=== PATIENT | male | born 1970 | race African-American/Black ===

== ENCOUNTER 2016-11-22 04:32 | Emergency (ER) | payer MEDICAID ==
[~2016-11-22] VITALS: Ht 175.3 cm; Wt 70.0 kg
[2016-11-22 04:52] VITALS: BP 162/112
[2016-11-22] MEDS ORDERED: LEVETIRACETAM 500MG PREMIX 100 ML IV ONE (05:00)
== END 2016-11-22 07:15 | disposition home or self-care (01) ==
LOC: ER 04:43
DX: G40.909 Epilepsy, unspecified, not intractable, without status epilepticus (principal); I10 Essential (primary) hypertension; F12.10 Cannabis abuse, uncomplicated; F17.200 Nicotine dependence, unspecified, uncomplicated
CPT/HCPCS: 96365; 99284; J1953

== ENCOUNTER 2017-01-04 08:08 | Emergency (ER) | payer MEDICAID ==
[~2017-01-04] VITALS: Ht 175.3 cm; Wt 74.0 kg
[2017-01-04] MEDS ORDERED: IBUPROFEN 600MG TABLET PO ONE (08:45)
[2017-01-04] MEDS ORDERED: LEVETIRACETAM 500MG PREMIX 100 ML IV ONE (08:45)
[2017-01-04 09:15] LABS: HEMATOCRIT. 39.6 % (42.0-52.0); HEMOGLOBIN. 13.6 g/dL (14.0-18.0); MEAN CORPUSCULAR HEMOGLOBIN 33.5 pg (28.0-32.0); MEAN CORPUSCULAR HGB CONC 34.3 g/dL (31.0-37.0); MEAN CORPUSCULAR VOLUME 97.7 fL (80.0-94.0); MEAN PLATELET VOLUME 8.6 fl (7.4-10.4); PLATELET 170 x1000/uL (130-400); RED BLOOD CELL COUNT 4.05 mill/uL (4.7-6.1); RED CELL DISTRIBUTION WIDTH 15.7 % (11.6-14.6); WHITE BLOOD COUNT 9.6 x1000/uL (4.5-11.0)
[2017-01-04 09:17] LABS: DIFFERENTIAL COMMENT 1
[2017-01-04 09:18] LABS: CHLORIDE 98 mEq/L (98-107); INDEX HEMOLYSI 1 (1-3); INDEX ICTERIC 1 (1-4); INDEX LIPEMIC 1 (1-3)
[2017-01-04 09:26] LABS: ALANINE AMINOTRANSFERASE 69 IU/L (13-61); ANION GAP 15; CALCIUM 8.7 mg/dL (8.5-10.1); CARBON DIOXIDE 29 mEq/L (21-32); UREA NITROGEN BLOOD 5 mg/dL (7-21); eGFR > 60 mL/min (>60)
[2017-01-04 09:35] LABS: CARBAMAZEPINE < 0.5 ug/mL (4-12); PHENOBARBITAL < 2.1 ug/mL (15.0-40.0); PHENYTOIN < 0.4 ug/mL (10-20); VALPROIC ACID < 3.0 ug/mL (50-100)
[2017-01-04 10:08] LABS: PLATELET ESTIMATE NORMAL
[2017-01-04 12:05] VITALS: BP 159/101
== END 2017-01-04 12:09 | disposition home or self-care (01) ==
LOC: ER 08:31
DX: R56.9 Unspecified convulsions (principal); I10 Essential (primary) hypertension; R51 Headache
CPT/HCPCS: 36415; 80053; 80156; 80165; 80184; 80185; 85025; 96365; 99284; J1953

== ENCOUNTER 2017-01-23 08:46 | Emergency (ER) | payer MEDICAID ==
[~2017-01-23] VITALS: Ht 172.7 cm; Wt 75.0 kg
[2017-01-23] MEDS ORDERED: LORAZEPAM 2MG/ML CPJ ONE (09:20)
[2017-01-23] MEDS ORDERED: LORAZEPAM 2MG/ML CPJ IV ONE (09:30)
[2017-01-23 09:33] LABS: BASOPHILS % 1.2 % (0.0-2.0); EOSINOPHILS % 0.3 % (0.0-5.0); HEMOGLOBIN. 14.1 g/dL (14.0-18.0); LYMPHOCYTES % 17.1 % (20.0-50.0); MEAN CORPUSCULAR HEMOGLOBIN 33.9 pg (28.0-32.0); MEAN PLATELET VOLUME 8.2 fl (7.4-10.4); MONOCYTES % 4.7 % (2.0-8.0); NEUTROPHILS % 76.7 % (40.0-76.0); PLATELET 221 x1000/uL (130-400); RED BLOOD CELL COUNT 4.16 mill/uL (4.7-6.1); RED CELL DISTRIBUTION WIDTH 15.7 % (11.6-14.6)
[2017-01-23 09:42] LABS: CARBON DIOXIDE 23 mEq/L (21-32); CHLORIDE 102 mEq/L (98-107)
[2017-01-23 09:48] LABS: ETHANOL BLOOD < 10 mg/dL
[2017-01-23 09:52] LABS: CARBAMAZEPINE < 0.5 ug/mL (4-12); PHENOBARBITAL < 2.1 ug/mL (15.0-40.0); PHENYTOIN < 0.4 ug/mL (10-20); VALPROIC ACID < 3.0 ug/mL (50-100)
[2017-01-23] MEDS ORDERED: LEVETIRACETAM 500MG PREMIX 100 ML IV ONE (10:45)
[2017-01-23 10:54] VITALS: BP 158/99
[2017-01-23 11:05] LABS: CLARITY URINE CLEAR (CLEAR); COLOR URINE YELLOW (YELLOW); GLUCOSE URINE NEGATIVE (NEGATIVE); KETONES URINE NEGATIVE (NEGATIVE); LEUKOCYTE ESTERASE URINE NEGATIVE (NEGATIVE); NITRITE URINE NEGATIVE (NEGATIVE); OCCULT BLOOD URINE 1+ (NEGATIVE); PROTEIN URINE 1+ (NEGATIVE); SPECIFIC GRAVITY URINE 1.019 (1.005-1.030); UROBILINOGEN URINE 0.2 E.U./dL (0.2-1.0)
[2017-01-23 11:14] LABS: *AMPHETAMINES SCREEN URINE NEGATIVE (NEGATIVE); *BARBITURATES SCREEN URINE NEGATIVE (NEGATIVE); *BENZODIAZEPINES SCREEN URINE NEGATIVE (NEGATIVE); *COCAINE SCREEN URINE NEGATIVE (NEGATIVE); CANNABINOID URINE SCREEN PRESUMTIVE POSITIVE (NEGATIVE); METHADONE URINE SCREEN NEGATIVE (NEGATIVE); OPIATES URINE SCREEN NEGATIVE (NEGATIVE); PHENCYCLIDINE URINE SCREEN PRESUMTIVE POSITIVE (NEGATIVE)
== END 2017-01-23 12:19 | disposition home or self-care (01) ==
LOC: ER 10:09
DX: R56.9 Unspecified convulsions (principal); I10 Essential (primary) hypertension; F17.210 Nicotine dependence, cigarettes, uncomplicated
CPT/HCPCS: 36415; 80053; 80156; 80165; 80184; 80185; 80305; 81001; 85025; 96365; 96375; 99284; G0482; J1953; J2060; Z7610

== ENCOUNTER 2017-04-02 07:37 | Emergency (ER) | payer MEDICAID ==
[~2017-04-02] VITALS: Ht 175.3 cm; Wt 76.0 kg
[2017-04-02] MEDS ORDERED: SODIUM CHLORIDE 0.9% 1,000 ML IV ONE (07:49)
[2017-04-02] MEDS ORDERED: LORAZEPAM 2MG/ML CPJ IV ONE (08:00)
[2017-04-02] MEDS ORDERED: LEVETIRACETAM 500MG PREMIX 100 ML IV ONE (08:00)
[2017-04-02 08:35] LABS: BASOPHILS % 1.1 % (0.0-2.0); EOSINOPHILS % 0.8 % (0.0-5.0); HEMOGLOBIN. 14.6 g/dL (14.0-18.0); LYMPHOCYTES % 24.4 % (20.0-50.0); MEAN CORPUSCULAR HEMOGLOBIN 35.7 pg (28.0-32.0); MEAN CORPUSCULAR VOLUME 105.2 fL (80.0-94.0); MEAN PLATELET VOLUME 8.1 fl (7.4-10.4); MONOCYTES % 4.7 % (2.0-8.0); PLATELET 277 x1000/uL (130-400); RED BLOOD CELL COUNT 4.09 mill/uL (4.7-6.1); RED CELL DISTRIBUTION WIDTH 14.5 % (11.6-14.6)
[2017-04-02 08:41] LABS: CHLORIDE 102 mEq/L (98-107)
[2017-04-02 08:43] LABS: PROTHROMBIN TIME 10.4 sec
[2017-04-02 08:53] LABS: CARBON DIOXIDE 28 mEq/L (21-32); ETHANOL BLOOD < 10 mg/dL; TROPONIN I < 0.02 ng/mL (0.00-0.04)
[2017-04-02 09:37] LABS: CLARITY URINE SL HAZY (CLEAR); COLOR URINE YELLOW (YELLOW); GLUCOSE URINE NEGATIVE (NEGATIVE); KETONES URINE NEGATIVE (NEGATIVE); LEUKOCYTE ESTERASE URINE NEGATIVE (NEGATIVE); NITRITE URINE NEGATIVE (NEGATIVE); OCCULT BLOOD URINE TRACE (NEGATIVE); PH URINE 5.5 (4.5-8.0); PROTEIN URINE 1+ (NEGATIVE); SPECIFIC GRAVITY URINE 1.024 (1.005-1.030); UROBILINOGEN URINE 0.2 E.U./dL (0.2-1.0)
[2017-04-02 10:35] VITALS: BP 142/87
[2017-04-02 14:28] LABS: *AMPHETAMINES SCREEN URINE NEGATIVE (NEGATIVE); *BARBITURATES SCREEN URINE NEGATIVE (NEGATIVE); *BENZODIAZEPINES SCREEN URINE NEGATIVE (NEGATIVE); *COCAINE SCREEN URINE NEGATIVE (NEGATIVE); CANNABINOID URINE SCREEN PRESUMTIVE POSITIVE (NEGATIVE); METHADONE URINE SCREEN NEGATIVE (NEGATIVE); OPIATES URINE SCREEN NEGATIVE (NEGATIVE); PHENCYCLIDINE URINE SCREEN PRESUMTIVE POSITIVE (NEGATIVE)
== END 2017-04-02 10:35 | disposition home or self-care (01) ==
LOC: ER 07:50
DX: G40.909 Epilepsy, unspecified, not intractable, without status epilepticus (principal); F17.200 Nicotine dependence, unspecified, uncomplicated
CPT/HCPCS: 36415; 80053; 80305; 81001; 82962; 83880; 84484; 85025; 85610; 93005; 96365; 96375; 99285; G0482; J1953; J2060; J7030

== ENCOUNTER 2017-06-17 14:52 | Emergency (ER) | payer MEDICAID ==
[~2017-06-17] VITALS: Ht 175.3 cm; Wt 71.0 kg
[2017-06-17] MEDS ORDERED: LEVETIRACETAM 1,000 MG in SODIUM CHLORIDE 0.9% 100 ML IV ONE (15:30)
[2017-06-17 16:04] LABS: HEMATOCRIT. 25.2 % (42.0-52.0); HEMOGLOBIN. 8.8 g/dL (14.0-18.0); MEAN CORPUSCULAR HEMOGLOBIN 37.2 pg (28.0-32.0); MEAN CORPUSCULAR VOLUME 106.5 fL (80.0-94.0); MEAN PLATELET VOLUME 8.4 fl (7.4-10.4); PLATELET 87 x1000/uL (130-400); RED BLOOD CELL COUNT 2.36 mill/uL (4.7-6.1); RED CELL DISTRIBUTION WIDTH 16.5 % (11.6-14.6)
[2017-06-17 16:09] LABS: CARBON DIOXIDE 21 mEq/L (21-32); CHLORIDE 105 mEq/L (98-107); ETHANOL BLOOD 37 mg/dL; TROPONIN I < 0.02 ng/mL (0.00-0.04)
[2017-06-17 16:51] LABS: CLARITY URINE CLOUDY (CLEAR); COLOR URINE DARK YELLOW (YELLOW); GLUCOSE URINE NEGATIVE (NEGATIVE); KETONES URINE NEGATIVE (NEGATIVE); LEUKOCYTE ESTERASE URINE NEGATIVE (NEGATIVE); NITRITE URINE NEGATIVE (NEGATIVE); OCCULT BLOOD URINE NEGATIVE (NEGATIVE); PROTEIN URINE NEGATIVE (NEGATIVE)
[2017-06-17 17:10] LABS: *AMPHETAMINES SCREEN URINE PRESUMTIVE POSITIVE (NEGATIVE); *BARBITURATES SCREEN URINE NEGATIVE (NEGATIVE); *BENZODIAZEPINES SCREEN URINE NEGATIVE (NEGATIVE); *COCAINE SCREEN URINE NEGATIVE (NEGATIVE); CANNABINOID URINE SCREEN PRESUMTIVE POSITIVE (NEGATIVE); METHADONE URINE SCREEN NEGATIVE (NEGATIVE); OPIATES URINE SCREEN NEGATIVE (NEGATIVE); PHENCYCLIDINE URINE SCREEN NEGATIVE (NEGATIVE)
[2017-06-17 18:20] LABS: NUCLEATED RED BLOOD CELLS 1 /100 WBC
[2017-06-17 18:24] LABS: PLATELET ESTIMATE DECREASED
[2017-06-17 18:30] VITALS: BP 124/72
[2017-06-17] MEDS ORDERED: ACETAMINOPHEN 325MG TABLET PO ONE (18:30)
== END 2017-06-17 18:33 | disposition home or self-care (01) ==
LOC: MERGE 14:55 → ER 14:55
DX: G40.909 Epilepsy, unspecified, not intractable, without status epilepticus (principal); N39.0 Urinary tract infection, site not specified; F15.10 Other stimulant abuse, uncomplicated; I10 Essential (primary) hypertension; F17.210 Nicotine dependence, cigarettes, uncomplicated; F12.10 Cannabis abuse, uncomplicated; E87.1 Hypo-osmolality and hyponatremia; D64.9 Anemia, unspecified; D69.6 Thrombocytopenia, unspecified; F10.10 Alcohol abuse, uncomplicated; Z71.6 Tobacco abuse counseling; Y90.1 Blood alcohol level of 20-39 mg/100 ml; Z91.14 Patient's other noncompliance with medication regimen
CPT/HCPCS: 36415; 70450; 71010; 80053; 80305; 81001; 84484; 85025; 93005; 96365; 99291; 99406; G0482; J1953; J7050

== ENCOUNTER 2017-06-29 08:53 | Emergency (ER) | payer MEDICAID ==
[~2017-06-29] VITALS: Ht 177.8 cm; Wt 68.0 kg
[2017-06-29] MEDS ORDERED: SODIUM CHLORIDE 0.9% 1,000 ML IV ONE (09:36)
[2017-06-29] MEDS ORDERED: LORAZEPAM 2MG/ML CPJ ONE (09:38)
[2017-06-29] MEDS ORDERED: LEVETIRACETAM 1,000 MG in SODIUM CHLORIDE 0.9% 100 ML IV ONE (09:45)
[2017-06-29] MEDS ORDERED: LORAZEPAM 2MG/ML CPJ IV ONE (09:45)
[2017-06-29 10:04] LABS: BASOPHILS % 1.2 % (0.0-2.0); HEMATOCRIT. 25.2 % (42.0-52.0); LYMPHOCYTES % 11.9 % (20.0-50.0); MEAN CORPUSCULAR HEMOGLOBIN 36.9 pg (28.0-32.0); MEAN CORPUSCULAR VOLUME 116.9 fL (80.0-94.0); MEAN PLATELET VOLUME 7.5 fl (7.4-10.4); MONOCYTES % 3.6 % (2.0-8.0); NEUTROPHILS % 83.3 % (40.0-76.0); PLATELET 331 x1000/uL (130-400); RED BLOOD CELL COUNT 2.16 mill/uL (4.7-6.1); RED CELL DISTRIBUTION WIDTH 21.8 % (11.6-14.6)
[2017-06-29 10:06] LABS: CLARITY URINE CLOUDY (CLEAR); COLOR URINE YELLOW (YELLOW); GLUCOSE URINE NEGATIVE (NEGATIVE); INR 1.1; KETONES URINE NEGATIVE (NEGATIVE); LEUKOCYTE ESTERASE URINE NEGATIVE (NEGATIVE); NITRITE URINE NEGATIVE (NEGATIVE); OCCULT BLOOD URINE 1+ (NEGATIVE); PROTEIN URINE 1+ (NEGATIVE); PROTHROMBIN TIME 11.2 sec (9.4-11.6); SPECIFIC GRAVITY URINE 1.022 (1.005-1.030)
[2017-06-29 10:08] LABS: CHLORIDE 108 mEq/L (98-107)
[2017-06-29 10:14] LABS: CARBON DIOXIDE 25 mEq/L (21-32); ETHANOL BLOOD < 10 mg/dL
[2017-06-29 10:15] LABS: AMMONIA 42 uMol/L (<32)
[2017-06-29 10:22] LABS: *AMPHETAMINES SCREEN URINE NEGATIVE (NEGATIVE); *BARBITURATES SCREEN URINE NEGATIVE (NEGATIVE); *BENZODIAZEPINES SCREEN URINE NEGATIVE (NEGATIVE); *COCAINE SCREEN URINE NEGATIVE (NEGATIVE); CANNABINOID URINE SCREEN PRESUMTIVE POSITIVE (NEGATIVE); METHADONE URINE SCREEN NEGATIVE (NEGATIVE); OPIATES URINE SCREEN NEGATIVE (NEGATIVE); PHENCYCLIDINE URINE SCREEN PRESUMTIVE POSITIVE (NEGATIVE)
[2017-06-29 10:27] LABS: PLATELET ESTIMATE NORMAL
[2017-06-29 14:46] VITALS: BP 112/72
== END 2017-06-29 14:51 | disposition left against medical advice (07) ==
LOC: MERGE 08:53 → ER 08:53 → ENRESERV 14:11 → CANRESERV 14:11 → ER 14:51 → CANBEDREQ 18:06
DX: R56.9 Unspecified convulsions (principal); F16.10 Hallucinogen abuse, uncomplicated; D64.9 Anemia, unspecified
CPT/HCPCS: 36415; 70450; 71010; 80053; 80305; 81001; 82140; 85025; 85610; 96365; 96366; 96375; 99285; G0482; J1953; J2060; J7030; Z7610; J7050

== ENCOUNTER 2017-07-10 06:14 | Emergency (ER) | payer MEDICAID ==
[~2017-07-10] VITALS: Ht 170.2 cm; Wt 72.0 kg
[2017-07-10] MEDS ORDERED: LEVETIRACETAM 500MG PREMIX 100 ML IV ONE (06:30)
[2017-07-10] MEDS ORDERED: LORAZEPAM 2MG/ML CPJ IV ONE (06:30)
[2017-07-10 07:05] LABS: INR 1.1; PROTHROMBIN TIME 11.1 sec (9.4-11.6)
[2017-07-10 07:11] LABS: AMMONIA 62 uMol/L (<32); BASOPHILS % 0.5 % (0.0-2.0); EOSINOPHILS % 1.7 % (0.0-5.0); HEMATOCRIT. 26.7 % (42.0-52.0); HEMOGLOBIN. 8.7 g/dL (14.0-18.0); LYMPHOCYTES % 44.8 % (20.0-50.0); MEAN CORPUSCULAR HEMOGLOBIN 38.9 pg (28.0-32.0); MEAN CORPUSCULAR VOLUME 119.2 fL (80.0-94.0); MEAN PLATELET VOLUME 8.1 fl (7.4-10.4); MONOCYTES % 6.1 % (2.0-8.0); NEUTROPHILS % 46.9 % (40.0-76.0); PLATELET 354 x1000/uL (130-400); RED BLOOD CELL COUNT 2.24 mill/uL (4.7-6.1)
[2017-07-10 07:20] LABS: CARBON DIOXIDE 19 mEq/L (21-32); CHLORIDE 112 mEq/L (98-107); ETHANOL BLOOD < 10 mg/dL
[2017-07-10 07:21] LABS: TROPONIN I < 0.02 ng/mL (0.00-0.04)
[2017-07-10 07:22] LABS: CARBAMAZEPINE < 0.5 ug/mL (4-12); VALPROIC ACID < 3.0 ug/mL (50-100)
[2017-07-10 07:23] LABS: PHENOBARBITAL < 2.1 ug/mL (15.0-40.0)
[2017-07-10 07:55] LABS: PLATELET ESTIMATE NORMAL
[2017-07-10 08:27] VITALS: BP 128/83
== END 2017-07-10 11:48 | disposition home or self-care (01) ==
LOC: MERGE 06:14 → ER 06:14 → CANBEDREQ 16:24
DX: G40.409 Other generalized epilepsy and epileptic syndromes, not intractable, without status epilepticus (principal)
CPT/HCPCS: 36415; 70450; 71010; 80053; 80156; 80165; 80184; 80185; 82140; 83690; 83880; 84484; 85025; 85610; 93005; 93970; 96365; 96375; 99285; G0482; J1953; J2060; Z7610; A4315

== ENCOUNTER 2017-07-11 18:10 | Emergency (ER) | payer MEDICAID ==
[~2017-07-11] VITALS: Ht 175.3 cm; Wt 70.0 kg
[2017-07-11 19:06] LABS: CLARITY URINE CLEAR (CLEAR); COLOR URINE YELLOW (YELLOW); GLUCOSE URINE NEGATIVE (NEGATIVE); KETONES URINE NEGATIVE (NEGATIVE); LEUKOCYTE ESTERASE URINE NEGATIVE (NEGATIVE); NITRITE URINE NEGATIVE (NEGATIVE); OCCULT BLOOD URINE 2+ (NEGATIVE); PROTEIN URINE NEGATIVE (NEGATIVE); SPECIFIC GRAVITY URINE 1.007 (1.005-1.030); UROBILINOGEN URINE 0.2 E.U./dL (0.2-1.0)
[2017-07-11 19:09] LABS: BASOPHILS % 2.1 % (0.0-2.0); EOSINOPHILS % 1.2 % (0.0-5.0); HEMATOCRIT. 25.6 % (42.0-52.0); HEMOGLOBIN. 8.2 g/dL (14.0-18.0); LYMPHOCYTES % 49.9 % (20.0-50.0); MEAN CORPUSCULAR HEMOGLOBIN 37.5 pg (28.0-32.0); MEAN CORPUSCULAR VOLUME 117.4 fL (80.0-94.0); MEAN PLATELET VOLUME 8.5 fl (7.4-10.4); MONOCYTES % 6.8 % (2.0-8.0); PLATELET 325 x1000/uL (130-400); RED BLOOD CELL COUNT 2.18 mill/uL (4.7-6.1); RED CELL DISTRIBUTION WIDTH 18.5 % (11.6-14.6)
[2017-07-11 19:13] LABS: CHLORIDE 110 mEq/L (98-107)
[2017-07-11 19:16] LABS: CARBON DIOXIDE 25 mEq/L (21-32)
[2017-07-11 19:17] LABS: ETHANOL BLOOD 210 mg/dL
[2017-07-11 19:20] LABS: *AMPHETAMINES SCREEN URINE NEGATIVE (NEGATIVE); *BARBITURATES SCREEN URINE NEGATIVE (NEGATIVE); *BENZODIAZEPINES SCREEN URINE NEGATIVE (NEGATIVE); *COCAINE SCREEN URINE NEGATIVE (NEGATIVE); CANNABINOID URINE SCREEN PRESUMTIVE POSITIVE (NEGATIVE); METHADONE URINE SCREEN NEGATIVE (NEGATIVE); OPIATES URINE SCREEN NEGATIVE (NEGATIVE); PHENCYCLIDINE URINE SCREEN PRESUMTIVE POSITIVE (NEGATIVE)
[2017-07-11 19:26] LABS: PLATELET ESTIMATE NORMAL
[2017-07-11] MEDS ORDERED: BACITRACIN ZINC OINT UDPKT TOP ONE (20:00)
[2017-07-11 22:33] VITALS: BP 132/82
== END 2017-07-12 00:09 | disposition home or self-care (01) ==
LOC: ER 18:31 → MERGE 18:31 → ER 07-12 00:09
DX: S09.8XXA Other specified injuries of head, initial encounter (principal); F10.129 Alcohol abuse with intoxication, unspecified; F19.10 Other psychoactive substance abuse, uncomplicated; R60.9 Edema, unspecified; R56.9 Unspecified convulsions; W18.39XA Other fall on same level, initial encounter; Y93.89 Activity, other specified; Y92.89 Other specified places as the place of occurrence of the external cause; Y99.8 Other external cause status
CPT/HCPCS: 36415; 70450; 71010; 80053; 80305; 81001; 83690; 84484; 85025; 93005; 99285; G0482; J7030; Z7610

== ENCOUNTER 2017-10-17 23:42 | Emergency (ER) | payer MEDICAID ==
[~2017-10-17] VITALS: Ht 170.2 cm; Wt 72.0 kg
[2017-10-18 00:13] VITALS: BP 143/92
[2017-10-18] MEDS ORDERED: SODIUM CHLORIDE 0.9% 1,000 ML IV ONE (00:23)
[2017-10-18] MEDS ORDERED: LEVETIRACETAM 500MG PREMIX 100 ML IV ONE (00:30)
[2017-10-18 00:43] LABS: BASOPHILS % 0.7 % (0.0-2.0); EOSINOPHILS % 1.8 % (0.0-5.0); HEMATOCRIT. 30.5 % (42.0-52.0); HEMOGLOBIN. 10.2 g/dL (14.0-18.0); LYMPHOCYTES % 44.7 % (20.0-50.0); MEAN CORPUSCULAR HEMOGLOBIN 32.7 pg (28.0-32.0); MEAN CORPUSCULAR VOLUME 97.7 fL (80.0-94.0); MEAN PLATELET VOLUME 7.9 fl (7.4-10.4); MONOCYTES % 7.7 % (2.0-8.0); NEUTROPHILS % 45.1 % (40.0-76.0); PLATELET 183 x1000/uL (130-400); RED BLOOD CELL COUNT 3.12 mill/uL (4.7-6.1); RED CELL DISTRIBUTION WIDTH 17.9 % (11.6-14.6)
[2017-10-18 01:09] LABS: CHLORIDE 103 mEq/L (98-107)
== END 2017-10-18 03:57 | disposition home or self-care (01) ==
LOC: ER 23:42
DX: R56.9 Unspecified convulsions (principal); I10 Essential (primary) hypertension
CPT/HCPCS: 36415; 80053; 85025; 96365; 99284; J1953; J7030; Z7610

== ENCOUNTER 2018-02-15 05:51 | Emergency (ER) | payer MEDICAID ==
[~2018-02-15] VITALS: Ht 170.2 cm; Wt 72.0 kg
[2018-02-15] MEDS ORDERED: SODIUM CHLORIDE 0.9% 1,000 ML IV ONE (07:37)
[2018-02-15 08:04] LABS: CHLORIDE 97 mEq/L (98-107)
[2018-02-15 08:05] LABS: INR 1.1; PROTHROMBIN TIME 11.2 sec (9.4-11.6)
[2018-02-15 08:08] LABS: ETHANOL BLOOD 66 mg/dL
[2018-02-15 08:09] LABS: BASOPHILS % 0.8 % (0.0-2.0); EOSINOPHILS % 0.2 % (0.0-5.0); HEMATOCRIT. 33.5 % (42.0-52.0); HEMOGLOBIN. 11.5 g/dL (14.0-18.0); LYMPHOCYTES % 16.8 % (20.0-50.0); MEAN CORPUSCULAR HEMOGLOBIN 34.4 pg (28.0-32.0); MEAN CORPUSCULAR VOLUME 100.4 fL (80.0-94.0); MEAN PLATELET VOLUME 8.6 fl (7.4-10.4); MONOCYTES % 6.6 % (2.0-8.0); NEUTROPHILS % 75.6 % (40.0-76.0); PLATELET 125 x1000/uL (130-400); RED BLOOD CELL COUNT 3.33 mill/uL (4.7-6.1); RED CELL DISTRIBUTION WIDTH 15.1 % (11.6-14.6)
[2018-02-15 09:34] LABS: *AMPHETAMINES SCREEN URINE NEGATIVE (NEGATIVE); *BENZODIAZEPINES SCREEN URINE NEGATIVE (NEGATIVE); *COCAINE SCREEN URINE PRESUMTIVE POSITIVE (NEGATIVE); METHADONE URINE SCREEN NEGATIVE (NEGATIVE)
[2018-02-15 09:35] LABS: *BARBITURATES SCREEN URINE NEGATIVE (NEGATIVE); CANNABINOID URINE SCREEN PRESUMTIVE POSITIVE (NEGATIVE); PHENCYCLIDINE URINE SCREEN PRESUMTIVE POSITIVE (NEGATIVE)
[2018-02-15 09:44] LABS: OPIATES URINE SCREEN NEGATIVE (NEGATIVE)
[2018-02-15] MEDS ORDERED: LORAZEPAM 1MG TABLET PO ONE (09:45)
[2018-02-15] MEDS ORDERED: IBUPROFEN 600MG TABLET PO ONE (09:45)
[2018-02-15 12:14] VITALS: BP 124/78
== END 2018-02-15 12:17 | disposition home or self-care (01) ==
LOC: ER 06:16
DX: R06.02 Shortness of breath (principal); M25.511 Pain in right shoulder; F12.10 Cannabis abuse, uncomplicated; F14.10 Cocaine abuse, uncomplicated; F19.10 Other psychoactive substance abuse, uncomplicated; R11.2 Nausea with vomiting, unspecified; I10 Essential (primary) hypertension; R56.9 Unspecified convulsions
CPT/HCPCS: 36415; 71045; 73030; 80053; 80305; 84484; 85025; 85379; 85610; 93005; 96360; 99285; G0482; J7030; Z7610

== ENCOUNTER 2018-02-26 17:37 | Emergency (ER) | payer MEDICAID ==
[~2018-02-26] VITALS: Ht 177.8 cm; Wt 69.0 kg
[2018-02-26 20:38] LABS: CLARITY URINE CLEAR (CLEAR); COLOR URINE YELLOW (YELLOW); KETONES URINE NEGATIVE (NEGATIVE); LEUKOCYTE ESTERASE URINE NEGATIVE (NEGATIVE); NITRITE URINE NEGATIVE (NEGATIVE); OCCULT BLOOD URINE NEGATIVE (NEGATIVE); PH URINE 5.5 (4.5-8.0); PROTEIN URINE NEGATIVE (NEGATIVE); SPECIFIC GRAVITY URINE 1.004 (1.005-1.030); UROBILINOGEN URINE 0.2 E.U./dL (0.2-1.0)
[2018-02-26 20:48] LABS: *AMPHETAMINES SCREEN URINE NEGATIVE (NEGATIVE); *BENZODIAZEPINES SCREEN URINE NEGATIVE (NEGATIVE); *COCAINE SCREEN URINE NEGATIVE (NEGATIVE); CANNABINOID URINE SCREEN PRESUMTIVE POSITIVE (NEGATIVE); METHADONE URINE SCREEN NEGATIVE (NEGATIVE); OPIATES URINE SCREEN NEGATIVE (NEGATIVE); PHENCYCLIDINE URINE SCREEN NEGATIVE (NEGATIVE)
[2018-02-26 20:49] LABS: *BARBITURATES SCREEN URINE NEGATIVE (NEGATIVE)
[2018-02-26 21:02] LABS: EOSINOPHILS % 1.7 % (0.0-5.0); HEMATOCRIT. 35.6 % (42.0-52.0); HEMOGLOBIN. 12.2 g/dL (14.0-18.0); LYMPHOCYTES % 52.9 % (20.0-50.0); MEAN CORPUSCULAR HEMOGLOBIN 34.6 pg (28.0-32.0); MEAN CORPUSCULAR VOLUME 101.2 fL (80.0-94.0); MEAN PLATELET VOLUME 8.8 fl (7.4-10.4); MONOCYTES % 8.3 % (2.0-8.0); NEUTROPHILS % 35.1 % (40.0-76.0); PLATELET 201 x1000/uL (130-400); RED BLOOD CELL COUNT 3.52 mill/uL (4.7-6.1); RED CELL DISTRIBUTION WIDTH 15.9 % (11.6-14.6)
[2018-02-26 21:12] LABS: D-DIMER 0.3 mg/L FEU (<0.50); INR 1.1; PROTHROMBIN TIME 11.1 sec (9.4-11.6)
[2018-02-26 21:49] LABS: CHLORIDE 107 mEq/L (98-107)
[2018-02-26 22:02] LABS: ETHANOL BLOOD 296 mg/dL
[2018-02-27 02:00] VITALS: BP 130/79
== END 2018-02-27 04:30 | disposition home or self-care (01) ==
LOC: ER 17:37
DX: R00.2 Palpitations (principal); R06.00 Dyspnea, unspecified; M54.12 Radiculopathy, cervical region; F12.10 Cannabis abuse, uncomplicated; I10 Essential (primary) hypertension; R56.9 Unspecified convulsions
CPT/HCPCS: 36415; 71045; 80053; 80305; 81003; 83690; 84484; 85025; 85379; 85610; 93005; 99285; G0482; Z7610